=== PATIENT | female | born 1980 | race African-American/Black ===

== ENCOUNTER 2017-02-19 10:16 | Emergency (ER) | payer OTHER ==
[~2017-02-19] VITALS: Ht 157.5 cm; Wt 89.8 kg
[~2017-02-19 10:16] MED LIST: ALBUTEROL INHAL17 GM IH; ANTIVERT25 MG PO; BACTRIM DS TAB1 EACH PO; CIPROFLOXACIN500 M1 PO; CIPROFLOXACIN500 M3 PO; CLEOCIN HCL150 MG PO; FLAGYL500 MG PO; FLEXERIL PO; IBUPROFEN 600600 M1 PO; IBUPROFEN 800800 MG PO; IRON325 PO; KLOR-CON 10 ER10 MEQ PO; LEVAQUIN 500 M500 MG PO; LORTAB 10 MG-3473 ML PO; MACROBID 100 M100 M1 PO; MECLIZINE HCL25 M1 PO; MEDROLDOSEPACK PO; MIRALAX255 GM PO; MOBIC7.5 M1 PO; MUCINEX TA600 MG/TA1 PO; NAPROSYN500 MG PO; NOHOMEMEDICATIONS; NORCO 5-325 TA1 EACH PO; NORFLEX100 MG PO; PANTOPRAZOLE SO40 M1 PO; PENICILLIN V P500 MG PO; PENICILLIN VK250 MG PO; PENICILLIN VK500 MG PO; PEPCID40 MG PO; PERCOCET 5-3251 EACH PO; PHENERGAN 25 MG25 M1 PO; POLYMYXIN B/TMP10 ML OP; PRENATAL; PYRIDIUM200 MG PO; TESSALON PERLE100 MG PO; ULTRAM 50MG TAB50 MG PO; VENTOLIN HFA 1818 GM INH; VICODIN 5-3001 EACH; ZOFRAN ODT4 MG PO; ZPAK PO
[2017-02-19 10:58] LABS: URINE BILIRUBIN NEGATIVE (Negative); URINE BLOOD NEGATIVE (Negative); URINE CLARITY CLEAR; URINE COLOR YELLOW; URINE GLUCOSE-RANDOM* NEGATIVE (Negative); URINE KETONES NEGATIVE (Negative); URINE LEUKOCYTES NEGATIVE (Negative); URINE NITRITE NEGATIVE (Negative); URINE PROTEIN (DIPSTICK) NEGATIVE (Negative); URINE SPECIFIC GRAVITY 1.025 (1.005-1.035)
[2017-02-19 11:30] LABS: HEMATOCRIT 37.8 % (37.0-47.0); HEMOGLOBIN 11.9 gm/dL (12.0-15.0); MCH 22.7 pg (26.0-34.0); MCHC 31.6 g/dL (28.0-37.0); MCV 71.8 fL (80.0-100.0); RBC 5.26 mil/uL (4.20-5.00); RDW 15.5 % (10.5-14.5); WBC 6.2 thou/uL (4.0-11.0)
[2017-02-19 11:45] LABS: CREATININE 0.6 mg/dL (0.6-1.0); POTASSIUM 3.9 mmol/L (3.5-5.1)
[2017-02-19] MEDS ORDERED: NAPROSYN500 MG PO (12:03)
[2017-02-19 12:32] VITALS: BP 120/78
== END 2017-02-19 12:33 | disposition home or self-care (01) ==
LOC: ER 10:16
PROVIDERS: Physician Assistant
DX: R10.2 Pelvic and perineal pain (principal); G89.29 Other chronic pain; M54.9 Dorsalgia, unspecified; F17.210 Nicotine dependence, cigarettes, uncomplicated; Z88.5 Allergy status to narcotic agent

== ENCOUNTER 2017-04-20 10:57 | Emergency (ER) | payer OTHER ==
[~2017-04-20] VITALS: Ht 154.9 cm; Wt 84.8 kg
[2017-04-20] MEDS ORDERED: BUTALB-APAP-CA1 EACH PO (11:46)
[2017-04-20] MEDS ORDERED: IBUPROFEN 600600 M1 PO (11:46)
[2017-04-20 12:17] VITALS: BP 156/78
== END 2017-04-20 12:18 | disposition home or self-care (01) ==
LOC: ER 10:57
DX: S93.401A Sprain of unspecified ligament of right ankle, initial encounter (principal); G89.29 Other chronic pain; M54.9 Dorsalgia, unspecified; F17.210 Nicotine dependence, cigarettes, uncomplicated; Z88.5 Allergy status to narcotic agent; Z88.6 Allergy status to analgesic agent; X50.1XXA Overexertion from prolonged static or awkward postures, initial encounter; Y93.89 Activity, other specified; Y92.89 Other specified places as the place of occurrence of the external cause; Y99.8 Other external cause status